=== PATIENT | female | born 1975 | race Caucasian/White ===

== ENCOUNTER 2022-05-11 13:50 | Emergency (ER) | payer MEDICAID, SELFPAY ==
[2022-05-11 14:15] VITALS: BP 141/88; PULSE 102; RESP 19; TEMP 37.2; O2SAT 97; BMI 32.8
[2022-05-11 14:26] LABS: Apearance,Urine Clear (Clear); Bilirubin,Urine Negative (Negative); Blood, Urine Trace (Negative); Color,Urine Dark Yellow (Yellow); Glucose,Urine (UA) Negative (Negative); Ketones,Urine Negative (Negative); Protein,Urine Negative (Negative); Specific Gravity, Urine 1.025 (1.005-1.030)
[2022-05-11 14:26] LABS: Adenovirus,PCR Not Detected (NotDetected); Bordetella Pertussis Not Detected (NotDetected); Chlamydophila Pneumoniae, PCR Not Detected (NotDetected); Coronavirus 19, PCR Not Detected (NotDetected); Coronavirus 229E Not Detected (NotDetected); Coronavirus NL63 Not Detected (NotDetected); Coronavirus OC43 Not Detected (NotDetected); Coronovirus HKU1,PCR Not Detected (NotDetected); Human Metapneumovirus Not Detected (NotDetected); Influenza A, PCR Not Detected (NotDetected); Influenza AH1, 2009 Not Detected (NotDetected); Influenza AH1, PCR Not Detected (NotDetected); Influenza AH3,PCR Not Detected (NotDetected); Influenza B, PCR Not Detected (NotDetected); Mycoplasma Pneumoniae, PCR Not Detected (NotDetected); Parainfluenza 1, PCR Not Detected (NotDetected); Parainfluenza 2, PCR Not Detected (NotDetected); Parainfluenza 3, PCR Not Detected (NotDetected); Parainfluenza 4, PCR Not Detected (NotDetected); Respiratory Syncytial Virus Not Detected (NotDetected); Rhinovirus/Enterovirus Not Detected (NotDetected)
[2022-05-11 14:27] LABS: UTC Leukocyte Esterase,Urine 1+ (Negative); UTC Nitrate,Urine Negative (Negative); Urobilinogen,Urine 0.2 EU/dl (0.2)
[2022-05-11 14:40] LABS: Strep Scrn Group A (Rapid) Negative (Negative)
--- NOTE | 2022-05-11 14:42 | HMH.EDUTC ---
[facility] [place] Clinical Impression: Nausea vomiting and diarrhea UTI (urinary tract infection) Qualifiers: Urinary tract infection type: site unspecified Hematuria presence: without hematuria Qualified Code(s): N39.0 - Urinary tract infection, site not specified Disposition: Home, Self-Care Condition on Discharge: Good Instructions: Sore Throat, Sciatica, Diarrhea, DI for Urinary Tract Infection (UTI), DI for Sciatica, Nausea and Vomiting-Adult Additional Instructions: Drink extra fluids with and between meals. If you have difficulty drinking, try very small amounts of water or suck on ice chips. ? Avoid fruit juices, as these do not replace minerals and can actually increase diarrhea. ? Children and adults can use sports drinks to replenish electrolytes. Younger children and infants should use products formulated for children, like oral rehydration solutions. ? Eat food in small amounts and let your stomach recover. ? Get lots of rest. You may feel tired or weak. ? No greasy or fried foods for the next 24-48 hours BRAT diet Bananas Rice Apples and [place] ? Make sure to drink plenty of liquids ? Return if needed ? Straight to ER if any life threatening symptoms ? Zofran as prescribed ? Follow up with family doctor in the next 48-72 hours if no improvement or any worsening of symptoms *Ibuprofen 600-800mg every 6-8 hours as needed for pain an inflammation. If need something more can take Tylenol in between doses of Ibuprofen to help Immediately follow up with your family doctor for new or worsening of symptoms, or no noticeable improvement over the next 3-5 days *Increase fluids. Water not Soda or Tea *Start antibiotic immediately and be sure to take as ordered for the FULL length of time although you should start to see improvement over the next 48 hours *Be SURE to follow up anytime for new or worsening symptoms with your family doctor. AND in 48 hours for urine culture results with your family doctor, if you do not have a doctor then you may call back to the [facility] for urine culture results and further treatment. We do recommend that you choose and establish care with a Primary Care Physician. AND follow up with them in 10-14 days to repeat UA to ensure infection is resolved and blood no longer present *Be sure to let your PCP know that we sent urine cultures from the [facility] so they can follow up to ensure that you area the on the correct antibiotic Call your doctor office and make appointment for 48 hours (2 days from today) to follow up and get the results of your urine culture and further treatment Prescriptions: Cefdinir [Omnicef 300mg Capsule] 300 mg PO BID 7 Days #14 cap Transmission Status: Received by [facility] Ondansetron [Zofran 4mg ODT] 4 mg PO TIDP PRN #12 tab PRN Reason: Nausea Transmission Status: Received by [facility] Referrals: Anita Soto APRN [Primary Care Provider] - As needed Forms: Work/School Release Medical Decision Making - [place] Inquiry Pt receiving controlled substance: No Aquil[place] was queried for this patient: No Vital Signs: 05/11/22 14:15 05/11/22 15:00 Temperature 99.0 F 99.0 F Temperature Source Oral Pulse Rate 102 H Pulse Rate [Right Brachial] 102 H Respiratory Rate 19 19 Blood Pressure 141/88 H Blood Pressure [Right Arm] 141/88 H Blood Pressure Mean [Right Arm] 105 Blood Pressure Source [Right Arm] Automatic Cuff Blood Pressure Position [Right Arm] Sitting 02 Sat by Pulse Oximetry 97 Oxygen Delivery Method Room Air - Lab Data Lab Results 05/11/22 14:21: Group A Strep Rapid Negative 05/11/22 14:25: Urine Color Dark yellow, Urine Appearance Clear, Urine pH 6.0, Ur Specific [place] 1.025, Urine Protein Negative, Urine Glucose (UA) Negative, Urine Ketones Negative, Urine Blood Trace, Urine Nitrate Negative, Urine Bilirubin Negative, Urine Urobilinogen 0.2, Ur Leukocyte Esterase 1+ A Orders (Tests/Meds): ED MEDICATIONS Discontinued Me
[2022-05-11 15:00] VITALS: BP 141/88; PULSE 102; RESP 19; TEMP 37.2; O2SAT 97
== END 2022-05-11 15:14 | disposition home or self-care (01) ==
PROVIDERS: Emergency Provider Nurse Practitioner; PCP Nurse Practitioner Family
DX: N39.0 Urinary tract infection, site not specified (principal); R11.2 Nausea with vomiting, unspecified; R19.7 Diarrhea, unspecified; R10.9 Unspecified abdominal pain; R05.9 Cough, unspecified; R50.9 Fever, unspecified
CPT/HCPCS: 81003; 87086; 87430; 87581; 87632; 87798; 96372; 99212; C9803; G0463; U0003; U0005

== ENCOUNTER 2022-06-13 09:47 | Emergency (ER) | payer MEDICAID, SELFPAY ==
[2022-06-13] VITALS (7 sets, daily range): BP systolic 76–139; BP diastolic 53–94; PULSE 86–129; RESP 14–28; TEMP 36.8–36.9; O2SAT 93–100; BMI 33.9
--- NOTE | 2022-06-13 10:05 | PC.NURSE ---
PATIENT SENT TO ER PER Uma BOLIVAR APRN FOR FURTHER EVALUATION. REPORT GIVEN TO Rickey SANDY RN
--- NOTE | 2022-06-13 10:06 | XR_ITS ---
PROCEDURE INFORMATION: Exam: XR Chest Exam date and time: 06/13/2022 10:26 AM Age: 46 years old Clinical indication: Chest wall pain; Additional info: Cough, chest pain TECHNIQUE: Imaging protocol: Radiologic exam of the chest. Views: 1 view. COMPARISON: No relevant prior studies available. FINDINGS: Lungs: Unremarkable. No consolidation. Pleural spaces: Unremarkable. No pleural effusion. No pneumothorax. Heart/Mediastinum: Unremarkable. No cardiomegaly. Bones/joints: Unremarkable. IMPRESSION: No acute findings.
--- NOTE | 2022-06-13 10:07 | PC.NURSE ---
pt to ed room 5 from rust
--- NOTE | 2022-06-13 10:10 | ECG_ITS ---
APPROVED REPORT Exam: Resting ECG HR:105 bpm ECG Measurements Heart Rate 105 AXES UT 146 P 72 QRSd 82 QRS 64 QT 331 T 52 QTc 392 Conclusion SINUS TACHYCARDIA POSSIBLE RIGHT ATRIAL ENLARGEMENT [0.25mV P-WAVE] NONSPECIFIC ST & T-WAVE ABNORMALITY ABNORMAL RHYTHM ECG UNCONFIRMED REPORT Electronically signed by : Pantera Mcdonnell MD 06/15/2022 21:13:58
[2022-06-13 10:27] LABS: Influenza A, PCR Not Detected (NotDetected); Influenza B, PCR Not Detected (NotDetected)
--- NOTE | 2022-06-13 10:31 | PC.NURSE ---
IV established and blood sent to the lab
--- NOTE | 2022-06-13 10:32 | PC.NURSE ---
at the bedside for eval
[2022-06-13 10:37] LABS: Basophils # 0.1 K/mm3 (0-0.2); Basophils % 0.9 % (0.1-2.0); Eosinophils # 0.2 K/mm3 (0.0-0.4); Eosinophils % 2.2 % (0.1-12.0); Hematocrit 46.1 % (37.0-47.0); Hemoglobin 15.3 g/dL (12.2-16.2); Lymphocytes # 3.8 K/mm3 (0.7-4.5); Lymphocytes % 44.8 % (10-50); Mean Corpuscular HGB Conc 33.1 g/dL (31.8-35.4); Mean Corpuscular Hemoglobin 28.7 pg (27.0-31.2); Mean Corpuscular Volume 86.6 fl (81-99); Mean Platelet Volume 9.4 fl (7.4-10.4); Monocytes # 0.5 K/mm3 (0.1-1.0); Monocytes % 6.1 % (1.7-9.3); Neutrophils # 3.9 K/mm3 (1.8-7.8); Platelet Count 274 K/mm3 (142-424); Red Blood Count 5.32 M/mm3 (4.20-5.40); Red Cell Distribution Width 13.2 % (11.5-17.5); White Blood Count 8.5 K/mm3 (4.8-10.8)
--- NOTE | 2022-06-13 10:38 | HMH.EDGENADL ---
ED Disposition Clinical Impression: COVID-19 Disposition: Home, Self-Care Condition on Discharge: Fair Instructions: DI for COVID-19 (Suspected or Confirmed ) Additional Instructions: You have been evaluated for cough, shortness of breath, likely due to COVID-19. Please take 4 more days of antibiotics (azithromycin) and 4 more days of steroids (dexamethasone). Please monitor your symptoms closely. Follow-up with your primary care doctor in 1 to 2 days for symptom recheck. Return to the emergency department for any new or worsening symptoms. Prescriptions: Albuterol Sulfate [Albuterol Sulfate Hfa] 8.5 gm IH QID PRN #1 each PRN Reason: Wheezing Transmission Status: Pending to [facility] dexAMETHasone [Dexamethasone] 6 mg PO DAILY #4 tab Transmission Status: Received by [facility] Azithromycin [Z-Tomas 250mg Tab] 250 mg PO DAILY #4 tab Transmission Status: Received by [facility] Referrals: Anita Soto APRN [Primary Care Provider] - Forms: Work/School Release Time of Disposition: 12:13 - Critical Care Critical Care Time: No Attestation: On 06/13/22, the high probability of a clinically significant, sudden or life threatening deterioration of the following system(s) required my full and direct attention, intervention and personal management. The time I documented below is in addition to time spent performing reported procedures but includes the following listed in this critical care notation. Medical Decision Making - Medical Records Medical records reviewed: Yes: I reviewed the patient's medical records. - [place] Inquiry Pt receiving controlled substance: No Vital Signs: 06/13/22 09:50 06/13/22 10:31 06/13/22 10:33 Temperature 98.5 F 98.3 F Temperature Source Oral Oral Pulse Rate 97 H Pulse Rate [Right] 129 H 107 H Respiratory Rate 28 H 16 15 Blood Pressure 103/80 L Blood Pressure [Right Arm] 139/94 H Blood Pressure Mean Blood Pressure Mean [Right Arm] 109 02 Sat by Pulse Oximetry 97 93 L 96 Oxygen Delivery Method Room Air Room Air 06/13/22 11:00 06/13/22 11:41 06/13/22 12:20 Temperature Temperature Source Pulse Rate 94 H 88 86 Pulse Rate [Right] Respiratory Rate 18 14 14 Blood Pressure 100/72 L 88/53 L 76/55 L Blood Pressure [Right Arm] Blood Pressure Mean 79 Blood Pressure Mean [Right Arm] 02 Sat by Pulse Oximetry 98 99 100 Oxygen Delivery Method - Lab Data Lab Results 06/13/22 10:23: SARS-CoV-2 (PCR) Detected A, Influenza A Untype (PCR) Not detected, Influenza Type B (PCR) Not detected 06/13/22 10:28: WBC 8.5, RBC 5.32, Hgb 15.3, Hct 46.1, MCV 86.6, MCH 28.7, MCHC 33.1, RDW 13.2, Plt Count 274, MPV 9.4, Neut % (Auto) 46.0, Lymph % (Auto) 44.8, [place] % (Auto) 6.1, Eos % (Auto) 2.2, Baso % (Auto) 0.9, Neut # (Auto) 3.9, Lymph # (Auto) 3.8, [place] # (Auto) 0.5, Eos # (Auto) 0.2, Baso # (Auto) 0.1 06/13/22 10:28: Sodium 139, Potassium 4.0, Chloride 106, Carbon Dioxide 27, Anion Gap 10.0, BUN 9, Creatinine 0.80, Estimated Creat Clear 157, Estimated GFR 77, Est GFR ( Amer) 93, Glucose 121 H, Calcium 9.4, Total Bilirubin 0.3, AST 57 H, ALT 50, Alkaline Phosphatase 94, Troponin I < 0.01, C-Reactive Protein 7.2 H, Total Protein 7.8, Albumin 4.3, Globulin 3.5 H, Albumin/Globulin Ratio 1.2 06/13/22 10:28: D-Dimer 0.64 H Result diagrams: 06/13/22 10:28 06/13/22 10:28 Orders (Tests/Meds): ED MEDICATIONS Generic Name Dose Route Start Last Admin Trade Name Freq PRN Reason Stop Dose Admin Azithromycin 500 mg/ Sodium 250 mls @ 250 mls/hr 06/13/22 10:45 06/13/22 10:56 Chloride IV 06/27/22 10:44 250 mls/hr Q24H LEANN Administration Discontinued Medications Generic Name Dose Route Start Last Admin Trade Name Freq PRN Reason Stop Dose Admin Albuterol/Ipratropium 3 ml 06/13/22 10:31 06/13/22 10:42 Ipratropium/Albuterol 3 Ml [facility] 06/13/22 10:32 3 ml ONCE ONE Administration Guaifenesin 5 ml
--- NOTE | 2022-06-13 10:45 | PC.NURSE ---
went to pt room with order picker Noreen to further assist with increased coughing and feeling SOA, pt was able to take deep breaths and inhale more air and stop coughing, pt feeling better and back to baseline. PT raised up in the bed more for comfort, family at bs and both doing well at this time.
[2022-06-13 10:50] LABS: Alanine Aminotransferase 50 U/L (12-78); Albumin Level 4.3 g/dl (3.5-5.0); Albumin/Globulin Ratio 1.2 (1.1-1.8); Alkaline Phosphatase 94 U/L (38-126); Aspartate Amino Transferase 57 U/L (14-36); Bilirubin,Total 0.3 mg/dl (0.2-1.3); Blood Urea Nitrogen 9 mg/dl (7-17); Calcium 9.4 mg/dl (8.4-10.2); Carbon Dioxide 27 mmol/L (22.0-30.0); Chloride 106 mmol/L (98-107); Creatinine Clearance Estimated 157 mL/min (50-200); Estimated Glomerular Filt Rate 77 ml/min (>60); GFR (African American) 93 ML/MIN (>60); Globulin 3.5 g/dL (1.3-3.2); Glucose 121 mg/dl (74-100); Sodium 139 mmol/L (136-145); Total Protein,Serum 7.8 g/dl (6.3-8.2)
[2022-06-13 10:55] LABS: C-Reactive Protein 7.2 mg/L (0-4)
[2022-06-13 10:56] LABS: D-Dimer 0.64 ug/mL (0.0-0.5)
[2022-06-13 10:57] LABS: Coronavirus 19, PCR Detected (NotDetected)
--- NOTE | 2022-06-13 11:00 | PC.NURSE ---
pt fefused to take the robitussin dm she says it gives her a false positive in her monthly drug screens
--- NOTE | 2022-06-13 11:02 | CT_ITS ---
PROCEDURE INFORMATION: Exam: CTA Chest With Contrast Exam date and time: 06/13/2022 11:18 AM Age: 46 years old Clinical indication: Shortness of breath; Additional info: Short of breath, elevated d-dimer TECHNIQUE: Imaging protocol: Computed tomographic angiography of the chest with contrast. 3D rendering (Not supervised by radiologist): MIP and/or 3D reconstructed images were created by the technologist. Radiation optimization: All CT scans at this facility use at least one of these dose optimization techniques: automated exposure control; mA and/or kV adjustment per patient size (includes targeted exams where dose is matched to clinical indication); or iterative reconstruction. Contrast material: ISOVUE; Contrast volume: 70 ml; Contrast route: INTRAVENOUS (IV); COMPARISON: CR XR CHEST PORTABLE 06/13/2022 10:26 AM FINDINGS: Pulmonary arteries: Negative for acute pulmonary embolism. Aorta: Unremarkable. No aortic aneurysm. No aortic dissection. Lungs: Unremarkable. No consolidation. No masses. Pleural spaces: Unremarkable. No pneumothorax. No pleural effusion. Heart: Unremarkable. No cardiomegaly. No pericardial effusion. Lymph nodes: Unremarkable. No enlarged lymph nodes. Bones/joints: Unremarkable. No acute fracture. Soft tissues: Unremarkable. IMPRESSION: Negative for acute pulmonary embolism.
--- NOTE | 2022-06-13 11:07 | PC.NURSE ---
advised she was covid positive , she already knew that!!!! elevated d-dimer new orders in radiology aware
[2022-06-13 11:12] LABS: Troponin I < 0.01 ng/ml (0.00-0.034)
--- NOTE | 2022-06-13 11:16 | PC.NURSE ---
pt going over for ct chest
--- NOTE | 2022-06-13 11:18 | PC.NURSE ---
pt going for ct
--- NOTE | 2022-06-13 11:18 | PC.NURSE ---
pt to ct
--- NOTE | 2022-06-13 11:28 | PC.NURSE ---
rad has brought pt back to room
--- NOTE | 2022-06-13 11:33 | PC.NURSE ---
hooked pt back to fluids and antibiotic, pt tolerated well.
== END 2022-06-13 13:26 | disposition home or self-care (01) ==
LOC: UTC 09:51 → ER 10:05
PROVIDERS: Emergency Provider Emergency Medicine; PCP Nurse Practitioner Family
DX: U07.1 COVID-19 (principal)
CPT/HCPCS: 71045; 71275; 80053; 84484; 85025; 85378; 86140; 93005; 94640; 96365; 96372; 99284; C9803; J0456; Q9967; U0003; U0005